=== PATIENT | female | born 2005 | race Caucasian/White ===

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

== ENCOUNTER 2025-03-12 16:21 | Emergency (ER) | payer OTHER, SELFPAY ==
[2025-03-12 16:32] VITALS: BP 112/74; PULSE 103; RESP 12; TEMP 36.8; O2SAT 98; BMI 23.6
--- NOTE | 2025-03-12 16:33 | ED_ITS ---
HPI - General Adult General Chief complaint: General Medical Stated complaint: body rash Time Seen by Provider: 03/12/25 16:39 Source: patient Mode of arrival: ambulatory Limitations: no limitations History of Present Illness ED Provider: Celsa Bowers PA-C HPI narrative: Patient is a 19 year old assigned female at with no reported medical history presenting to the emergency department today with bilateral lower leg rash and left wrist rash. Patient states that over the last week she has had a rash to both of her lower legs and her left wrist that is itchy. Patient states that she was living in a dorm / at college and just moved back yesterday (03/11/2025). Patient states that she does have pets in the home including a dog and cats. Patient denies any dizziness, lightheadedness, abdominal pain, nausea, vomiting, fever, chills, blurry vision, double vision, loss of vision, chest pain, difficulty breathing, shortness of breath, back pain, night sweats, pain with urination, increased urinary frequency, increased urinary urgency, blood in her urine or stool, syncope or a near syncopal episode, recent trauma or falls, bowel incontinence, bladder incontinence, or any other complaints at this time. Patient denies any recent travel. Patient denies any recent hiking or time outdoors. Relieving factors: none Exacerbating factors: none Associated symptoms: rash Treatments prior to arrival: none Related Data Previous Rx's ?Medication ?Instructions ?Recorded prednisone 20 mg tablet 20 mg PO DAILY 7 days #7 tabs 03/12/25 Allergies Allergy/AdvReac Type Severity Reaction Status Date / Time latex Allergy Swelling Verified 03/12/25 16:35 Review of Systems Constitutional: Constitutional: Reports no additional constitutional complaints, Denies chills, Denies fever(s) and Denies night sweats Eyes: Eyes: Reports no additional eye complaints, Denies blurry vision, Denies change in vision, Denies diplopia, Denies eye discharge, Denies loss of vision and Denies eye pain ENT: Denies dizziness Cardiovascular: Cardiovascular: Reports no additional cardiovascular complaints, Denies chest pain, Denies lightheadedness, Denies Loss of Consciousness and Denies dyspnea Respiratory: Respiratory: Reports no additional respiratory complaints and Denies dyspnea Gastrointestinal: Gastrointestinal: Reports no additional gastrointestinal complaints, Denies abdominal pain, Denies melena, Denies hematochezia, Denies change in bowel habits and Denies change in stool character Genitourinary: Genitourinary: Denies hematuria, Denies urinary frequency, Denies dysuria, Denies urinary incontinence, Denies urinary hesitancy and Denies urinary urgency Musculoskeletal: Musculoskeletal: Reports no additional musculoskeletal complaints, Denies numbness and Denies tingling Integumentary/Breasts: Comments: rash to bilateral lower legs and left wrist Neurologic: Denies dizziness, Denies loss of vision, Denies numbness and Denies tingling Psychiatric: Psychiatric: Reports no additional psychiatric complaints Endocrine: Endocrine: Reports no additional endocrine complaints Hematologic/Lymphatic: Hematologic/Lymphatic: Reports no additional hematologic/lymphatic complaints Allergic/Immunologic: Allergic/Immunologic: Reports no additional allergic/immunologic complaints PMFSH Past Medical History Attestation statement: The following information was validated with the patient. Source: old records reviewed and nursing notes reviewed Medical History Lumbar puncture headache Surgical History [place] teeth extracted Social History Social History Advance Directives: No Advance Directives Information Provided: No Do you have a plan to hurt others: No Plan Physical Exam ED Vital Signs: Vital Signs - 24 hr 03/12/25 16:32 Temperature 98.2 F Pulse Rate 103 H Respiratory Rate 12 Blood Pressure 112/74 Pulse Oximetry 98 BMI result Body Mass Index 23.6 Const General: cooperative, no acute distress, alert and awake Nutritional Appearance: well nourished Orientation/consciousness: patient oriented x3 HENMT Head: Yes normal to inspection and Yes atraumatic Ears: hearing grossly normal bilaterally and external ears normal General nose exam: Normal external nose present, no nasal discharge noted and no epistaxis Face and sinus: Yes normal facial exam, No abrasion and No laceration Mouth: Normal oral and palatal mucosa present, no drooling and no muffled voice Eyes General: appearance normal, both eyes and all related structures Periorbital: periorbital findings normal Eyelids: Yes eyelids normal Conjunctivae: conjunctivae normal Pupils: Equal, round and reactive pupils present EOM: EOMs intact bilaterally Neck Neck: Yes normal visual inspection, Yes full ROM and Yes no lymphadenopathy Resp Effort & Inspection: normal respiratory effort and able to speak in complete sentences Neuro General: patient oriented x3, moves all extremities and CN's II-XI intact bilat erally Cranial nerves: Yes Equal, round and reactive pupils present Cognition (Neuro): normal cognition Extrem Other: non vesicular, scabbing, scattered - rash present to the bilateral lower extremity and volar left wrist General: Yes full ROM and Yes capillary refill normal Psych Appearance: grossly normal Mental Status: mental status grossly normal Affect: normal affect Attitude: cooperative Thought process: Normal thought process present Thought content: Normal thought content present Insight: Good insight present (Psych) Medical Decision Making Medical Decision Making MDM Narrative: Patient is a 19 year old assigned female at with no reported medical history presenting to the emergency department today with bilateral lower leg rash and left wrist rash. Patient's physical exam was as noted in the physical exam portion of this note. Patient's clinical presentation is most consistent with a contact dermatitis vs. mites vs. fleas vs. bed bugs. I explained my physical exam findings to the patient. I answered all questions asked by the patient. I explained to the patient that she should wash all of her clothing and bedding in HOT water. I stressed the importance of the patient taking her medication as directed (either prescribed or as the over the counter packaging recommends). I stressed the importance of the patient following up with her primary care provider and jewel inspector. I stressed the importance of the patient returning to the emergency department immediately if her symptoms were to worsen or if she were to develop any dizziness, shortness of breath, difficulty breathing, chest pain, blurry vision, loss of vision, nausea, vomiting, abdominal pain, fever, chills, back pain, or any other complaints. Patient verbalized agreement and understanding with this treatment plan and discharge. Differential Diagnosis Differential Diagnoses: The differential diagnosis associated with the presentation includes Mites Bed bugs Fleas Contact dermatitis Admission/Observation Consideration of admission/observation: Escalation of care including admission/observation considered Patient would have been admitted to the hospital had her clinical presentation warranted hospital admission. Discharge Plan Discharge Clinical Impression: Rash Patient Disposition: Home, Self-Care Instructions: Contact Dermatitis (DC), Acute Rash (ED) Additional Instructions: Please make sure to wash all of your clothing and bedding in HOT water. Follow up with your primary care provider and a jewel inspector. Return to the emergency department immediately if your symptoms worsen or if you develop any numbness, tingling, dizziness, shortness of breath, difficulty breathing, chest pain, blurry vision, loss of vision, nausea, vomiting, abdominal pain, fever, chills, back pain, or any other complaints. Please see the information below about our Patient Portal. If you are not yet enrolled in the [facility] Patient Portal, you will receive an enrollment email invitation following your visit to any [facility] setting. You may also self-enroll in the Patient Portal by visiting our website: [email or web address] The following information is required to access the Patient Portal: - Your [facility] Medical Record Number - Your personal home email address (must match what is in your electronic medical record, Registration staff can assist with this) - Name - Date of Capabilities of the Patient Portal: - Message some providers - View upcoming appointments - Access your health summary, medical history, and visit history - View current conditions and allergies - View procedure and lab results - View your medications, including guidelines, side effects, and precautions - Complete pre-appointment questionnaires requested by your provider - Ready summary reports of your office visits and procedures To access the Patient Portal Mobile [employer], follow these directions: - Search [employer] in the [employer] Store or [email or web address] Store - Download the [employer] - Search for - Enter your login/password Prescriptions: New prednisone 20 mg tablet 20 mg PO DAILY 7 Days Qty: 7 0RF Referrals: [facility] [Provider Group] (Call to establish and follow up with a jewel inspector. ) Prince Patterson MD [Primary Care Provider] - Discharge Date/Time: 03/12/25 16:49 Print Language: Setswana
== END 2025-03-12 16:49 | disposition home or self-care (01) ==
LOC: HO.ED 16:47
PROVIDERS: Emergency Provider Emergency Medicine Emergency Medical Services; PCP Pediatrics
DX: R21 Rash and other nonspecific skin eruption (principal)
CPT/HCPCS: 99281; 99283

== ENCOUNTER 2025-04-04 20:23 | Emergency (ER) | payer SELFPAY ==
[2025-04-04 20:55] VITALS: BP 124/80; PULSE 100; RESP 18; TEMP 36.6; O2SAT 97; BMI 25.1
--- NOTE | 2025-04-04 20:58 | ED.SKABFB ---
HPI - Skin/Abscess/Foreign Bdy General Chief complaint: Skin/Abscess/Foreign Body Stated complaint: body rash/itching Related Data Previous Rx's ?Medication ?Instructions ?Recorded prednisone 20 mg tablet 20 mg PO DAILY 7 days #7 tabs 03/12/25 Allergies Allergy/AdvReac Type Severity Reaction Status Date / Time latex Allergy Swelling Verified 04/04/25 20:56 PMFSH Past Medical History Medical History Lumbar puncture headache Surgical History [place] teeth extracted Social History Social History Advance Directives: No Advance Directives Information Provided: No Do you have a plan to hurt others: No Plan Physical Exam Vital Signs: Vital Signs: Last Vital Signs Temp 98 F 04/04/25 20:55 Pulse 100 04/04/25 20:55 Resp 18 04/04/25 20:55 BP 124/80 04/04/25 20:55 Pulse Ox 97 04/04/25 20:55 O2 Del Method Room Air 04/04/25 20:55 BMI result Body Mass Index 25.1 Course Course Course Narrative: This is an RME: Additional HPI, ROS, PE not included below will be deferred to primary provider. RME assessment and note performed by: Emma Phillips PA-C This is a 19-female who presents to the ER with complaints of rash. Was seen here 1 month ago for same, washed bedding and took prednisone however still continues to have symptoms. Recent diagnosis of HSV. Unable to rash in triage secondary to limited privacy Plan: further physical examination needed Reevaluation(s) Reevaluation #1: Patient left without completing treatment. Discharge Plan Discharge Clinical Impression: Rash Patient Disposition: Left W/O Completing Treatment Prescriptions: No Action prednisone 20 mg tablet 20 mg PO DAILY 7 Days Qty: 7 0RF Discharge Date/Time: 04/04/25 23:28
--- NOTE | 2025-04-04 23:20 | PC.NURSE ---
no answer from WR at 2300
== END 2025-04-04 23:28 | disposition left against medical advice (07) ==
LOC: HO.ED 23:26
PROVIDERS: Emergency Provider Emergency Medicine; PCP Pediatrics
DX: R21 Rash and other nonspecific skin eruption (principal)
CPT/HCPCS: 99281